=== PATIENT | male | born 1965 | race Caucasian/White ===

== ENCOUNTER 2016-08-17 17:02 | Emergency (ER) | payer BC ==
[~2016-08-17] VITALS: Ht 185.4 cm; Wt 85.0 kg
[2016-08-17 17:06] VITALS: TEMP 36.5; Ht 185.4 cm; Wt 85.0 kg
[2016-08-17] MEDS ORDERED: KETOROLAC TROMETHAMINE 60 MG/2 ML VIAL IM STA (17:27)
[2016-08-17] MEDS ORDERED: CYCL10TA6 PO (17:38)
[2016-08-17] MEDS ORDERED: METH4PAK PO (17:38)
--- NOTE | 2016-08-17 17:40 | EMERGENCY ROOM VISIT NOTE ---
ED Visit Note First contact with patient: 17:09 CHIEF COMPLAINT: Low back pain HISTORY OF PRESENT ILLNESS: This is a 51-year-old male patient presents to the emergency department ambulatory complaining of pain in the low back which began 4 days ago. The pain was gradual in onset, is now constant and worse with movement. 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 Patient has been staying in hot and Sunday, and states when he awoke on Sunday he noticed that his back was sore. Patient states symptoms have been progressively worsening, and he is not having difficulty with walking/getting out of history. Pain is all in his lower back. Patient denies history of back problems, but does report history of the same symptoms approximately 6 years ago. Patient states the symptoms improved on her own at that time. Patient states he has to sit in a car and drive 2.5 hours home tomorrow, and is looking for some pain relief to help him get home. The patient notes the pain as throbbing and a 5/10. The patient has taken 2 Excedrin approximately 5 hours ago for relief of the pain. The patient denies any loss of control of their bowel or bladder functions. There has been no leg numbness or weakness, and no change in sensation. No nausea or vomiting or abdominal pain. No chest pain or shortness of breath. The patient has not had prior back injuries. No dysuria or increased urinary frequency. REVIEW OF SYSTEMS: A review of systems was performed with positives and pertinent negatives listed in the history of present illness. All other systems were reviewed and are negative. ALLERGIES: None MEDICATIONS: none PMH: None SOCIAL HISTORY: Patient is here from out of town for training. He denies alcohol, drug or tobacco use. PHYSICAL EXAM: VITALS: Vitals are noted on the nurse's note and reviewed by myself. Vital signs stable. GENERAL: 51-year-old male, in no acute distress, nondiaphoretic, well-developed well-nourished. SKIN: The skin was without rashes, erythema, edema, or bruising. Capillary refill less than 2 seconds. NECK: Supple without nuchal rigidity. No cervical spine tenderness. No paraspinous muscle tenderness. HEART: Regular rate and rhythm without murmurs gallops or rubs. LUNGS: Clear to auscultation bilaterally without wheezes, rales or rhonchi. ABDOMEN: Positive bowel sounds x 4. Normal tympanic percussion. Soft, nontender, without masses or organomegaly. Ayoub sign negative. MUSCULOSKELETAL: No muscle atrophy, erythema, or edema noted of the back. There is no tenderness over the lumbar spinous processes. There is no tenderness over the paraspinous muscles bilaterally. There is no tenderness over the thoracic spine or paraspinous muscles. There are muscle spasms present. The patient is slow to move around with maximum tenderness with position changes. Negative straight leg raise test. NEURO: Patient was alert and oriented to person place and time. Normal sensation to light and sharp touch. Deep tendon reflexes 2+ in the lower extremities. Dorsalis pedis pulse 2+ bilaterally. Strength 5/5 and equal in the bilateral lower extremities. EMERGENCY DEPARTMENT COURSE: Patient was seen and evaluated as above. Patient was provided with a dose of IM Toradol, which he states helped with his pain. I discussed with the patient, with no recent injury, no reason at this time to perform x-ray. Patient is in agreement with this. Provided patient with medication instructions. Patient was discharged home in good condition. DIAGNOSIS: Lumbar strain DISCHARGE DIAGNOSIS: Lumbo-sacral fracture, degenerative disc disease, muscle spasms, osteoarthritis, sciatica. DISCHARGE INSTRUCTIONS AND TREATMENT: You have been prescribed a Medrol Dosepak. This is a steroid which will help decrease your inflammatio. Take the medicine as prescribed. Take the ENTIRE 6 day course of the steroids. You have been prescribed Flexeril (cyclobenzaprine) 1 tabs orally, three times per day. Do NOT exceed 30 mg (3 tabs) per day. Take your first dose at bedtime as it can make you drowsy. Always take all medications as prescribed. Do not drive while taking this medication. For pain control, you can use the following afil-nka-wkhmikb medicines (if >12 yo): - Regular strength (325mg/tab) Tylenol (acetaminophen) 2 tabs every 4-6 hours as needed. Do not exceed 12 tablets in a 24 hour period. Avoid taking more than 4 grams (4000 mg) of Tylenol per day. This includes any other sources of acetaminophen you may take on a regular basis. - Recommended against using NSAIDs including ibuprofen, naproxen, Aleve, Motrin , Advil while taking steroids. If this is an acute injury, ice can be applied to the area of pain for the first 3 days to help decrease pain and inflammation. After the first 3 days, a heating pad can be used over the area for continued soothing relief. You should schedule a follow-up appointment in 2-3 days with your Primary Care Provider for further evaluation and treatment of your back pain. Return to the Emergency Department if your current symptoms worsen despite treatment course outlined above, or if you develop any of the following symptoms : intractable pain despite aforementioned treatment course, loss of control of your bowel or bladder, numbness or tingling in your groin, or development of a fever. Current/Historical Medications Scheduled Methylprednisolone (Medrol Dosepak), 0 PO DAILY Scheduled PRN Cyclobenzaprine Hcl (Flexeril), 10 MG PO TID PRN for Muscle Spasms Allergies Coded Allergies: No Known Allergies (Unverified , 08/17/16) Vital Signs Date Time Temp Pulse Resp B/P (MAP) Pulse Ox O2 Delivery O2 Flow Rate FiO2 08/17/16 17:06 36.5 86 18 147/93 98 Room Air Medications Administered Medications (Trade) Dose Ordered Sig/Georgette Route Start Time Stop Time Status Last Admin Dose Admin Ketorolac Tromethamine (Toradol Inj) 60 mg NOW STAT IM 08/17/16 17:27 08/17/16 17:28 DC 08/17/16 17:47 60 MG Departure Information Impression Primary Impression: Strain of lumbar region Dispostion Home / Self-Care Condition GOOD Prescriptions Cyclobenzaprine Hcl (FLEXERIL) 10 Mg Tab 10 MG PO TID Y for Muscle Spasms MDD 30 mg, #15 TAB Prov: Oliva Palomo PA-C 08/17/16 Methylprednisolone (MEDROL DOSEPAK) 4 Mg Brock 0 PO DAILY, #1 PKT Prov: Oliva Palomo PA-C 08/17/16 Referrals No Doctor, Assigned (PCP) Patient Instructions [facility] Additional Instructions You have been treated in the Emergency Department for Back Pain. You have been prescribed a Medrol Dosepak. This is a steroid which will help decrease your inflammatio. Take the medicine as prescribed. Take the ENTIRE 6 day course of the steroids. You have been prescribed Flexeril (cyclobenzaprine) 1 tabs orally, three times per day. Do NOT exceed 30 mg (3 tabs) per day. Take your first dose at bedtime as it can make you drowsy. Always take all medications as prescribed. Do not drive while taking this medication. For pain control, you can use the following yrif-xjx-eygkgaq medicines (if >12 yo): - Regular strength (325mg/tab) Tylenol (acetaminophen) 2 tabs every 4-6 hours as needed. Do not exceed 12 tablets in a 24 hour period. Avoid taking more than 4 grams (4000 mg) of Tylenol per day. This includes any other sources of acetaminophen you may take on a regular basis. - Recommended against using NSAIDs including ibuprofen, naproxen, Aleve, Motrin , Advil while taking steroids. If this is an acute injury, ice can be applied to the area of pain for the first 3 days to help decrease pain and inflammation. After the first 3 days, a heating pad can be used over the area for continued soothing relief. You should schedule a follow-up appointment in 2-3 days with your Primary Care Provider for further evaluation and treatment of your back pain. Return to the Emergency Department if your current symptoms worsen despite treatment course outlined above, or if you develop any of the following symptoms : intractable pain despite aforementioned treatment course, loss of control of your bowel or bladder, numbness or tingling in your groin, or development of a fever. Problem Qualifiers Primary Impression: Strain of lumbar region Encounter type: initial encounter Qualified Codes: S39.012A - Strain of muscle, fascia and tendon of lower back, initial encounter
[2016-08-17 18:16] VITALS: BP 127/89; PULSE 81; O2SAT 98
== END 2016-08-17 18:16 | disposition home or self-care (01) ==
LOC: C.EDB 17:04 → C.EDD 18:16
DX: S39.012A Strain of muscle, fascia and tendon of lower back, initial encounter (principal); X58.XXXA Exposure to other specified factors, initial encounter